=== PATIENT | female | born 1980 | race Caucasian/White ===

== ENCOUNTER → 2024-03-21 | Outpatient (CLI) | payer OTHER ==
[~2024-03-21] MED LIST: IBUP80TA PO; MAPA500T2 PO
== END ==
LOC: M WHC 07:16
PROVIDERS: ATTEND Student in an Organized Health Care Education/Training Program
DX: Z12.31 Encounter for screening mammogram for malignant neoplasm of breast (principal); R92.333 Mammographic heterogeneous density, bilateral breasts

== ENCOUNTER → 2024-06-25 | Outpatient (CLI) | payer OTHER ==
[~2024-06-25] MED LIST changes: +PROHANCE 279.3MG/ML 15ML VIAL ONE
== END ==
LOC: M PLAIMG 15:08
PROVIDERS: ATTEND Plastic Surgery Surgery of the Hand
DX: T85.44XA Capsular contracture of breast implant, initial encounter (principal); N64.4 Mastodynia
CPT/HCPCS: A9576; C8908